=== PATIENT | male | born 1950 | race African-American/Black ===

== ENCOUNTER 2017-01-16 13:59 | Inpatient (IN) | payer MEDICARE, OTHER ==
--- NOTE | ~2017-01-16 | CN ---
Consultation Report [facility] [address] [place]. [address] NAME: JONNA GUZMAN : 48 STATUS : ADM IN PAT#: [id number] AGE: 66 ADM/REG DATE : 01/16/17 MR#: [id number] REPORT SERV DATE: 01/18/17 DICTATED BY: MARK HATHAWAY DATE: 01/17/17 REPORT STATUS : Draft TRANSCRIBED BY: MODL DATE: 01/17/17 GI CONSULT DATE OF CONSULTATION: HISTORY OF PRESENT ILLKNESS: This 66-year-old gentleman has a past history of ulcerative colitis. He was diagnosed in 2010 with 45 cm of disease. At that time, he had anemia and denied much in the way of symptoms. He was treated with steroids off and on. In 12/2015, he had a colonoscopy that showed fairly severe changes from the rectum to the hepatic flexure. He was anemic at that time. He denied symptoms of bleeding or diarrhea. He was initially evaluated because of iron-deficiency anemia, but he really denied bleeding. He was offered treatment with biologic agents, either anti-TNF agents or Entyvio. He refused either treatment. He was not compliant and did not follow up after that. He was admitted with weakness. His hemoglobin was 3.2. He denied any black stools or obvious bleeding. He denied diarrhea. PHYSICAL EXAMINATION: VITAL SIGNS: His blood pressure is 112/63 and pulse is 90. GENERAL: Alert and oriented. Looks stated age. CHEST: Clear. CARDIAC: Normal. ABDOMEN: Soft and nontender. The patient has stool with blood in it that is loose. He denies at that time having bleeding. He also has carcinoma of the prostate which is apparently very aggressive, stage IV. He has been on prednisone for that and I think some sort of chemo agent. IMPRESSION: Patient with history of ulcerative colitis dating back to 2010. He has been evaluated for this multiple times and has had more extensive involvement of his colon. He has always denied any symptoms. He has been offered various treatments including steroid taper and biologic agents which he has refused. I see at this point no reason for a bone marrow as he has been evaluated for this. PLAN: At this point, we can consider re-endoscopy though it is really not going to gear changer. In my view, he needs to decide if he is willing to accept treatment for his inflammatory bowel disease, I suppose it would depend on his prognosis for his prostate cancer. MG/VERONICAL Mark Hathaway M.D. Consultation Report [address] [address] NAME: JONNA GUZMAN : 48 STATUS : ADM IN PAT#: [id number] AGE: 66 ADM/REG DATE : 01/16/17 MR#: [id number] REPORT SERV DATE: 01/18/17 DICTATED BY: MARK HATHAWAY DATE: 01/17/17 REPORT STATUS : Draft TRANSCRIBED BY: GINA DATE: 01/17/17 / [id number] CC: Ana M Franklin M.D.
--- NOTE | ~2017-01-16 | CN ---
Consultation Report [address] [place]. [address] NAME: JONNA BACK : 48 STATUS : ADM IN PAT#: [id number] AGE: 66 ADM/REG DATE : 01/16/17 MR#: [id number] REPORT SERV DATE: 01/17/17 DICTATED BY: MANE RIGGS DATE: 01/17/17 REPORT STATUS : Draft TRANSCRIBED BY: MODL DATE: 01/17/17 CONSULTATION NOTE DATE OF CONSULTATION: REASON FOR CONSULTATION: 1. Urinary retention. 2. Carcinoma of the prostate. 3. Acute kidney injury. HISTORY OF PRESENT ILLNESS: Mr. Back is an established patient of Dr. Cliff Martin who is followed for prostate cancer, presumably stage T4. The patient was asked about his treatment and he stated that he did receive Provenge, but has not had radiation therapy nor surgery. He was admitted with a hemoglobin of 3.2 and hematocrit of 13.4 with no visible bleeding. Creatinine was 3.72 with mild upper tract dilation on a renal ultrasound and marked bladder distention. PHYSICAL EXAMINATION: GASTROINTESTINAL: The bladder is distended to the umbilicus and nontender. Abdomen is otherwise unremarkable. Flanks are negative. CHEST: Clear. GENITALIA: Normal. Uncircumcised. Perineum normal. RECTAL: Deferred. IMPRESSION: 1. Urinary retention. 2. Acute kidney injury, probably secondary to urinary retention. 3. Carcinoma of the prostate (question stage T4). PLAN: Martin catheter was passed with some degree of difficulty in #18 coude Martin with return of greater than 800 mL. (Martin is clamped and then will be completely drained after about 10 minutes). Urine culture is obtained. Dr. Martin will follow on 01/18/2017. MS/MODL Mane Riggs M.D. / [id number] CC: Donald Alvarez M.D. Consultation Report [address] [place]. [address] NAME: JONNA BACK : 48 STATUS : ADM IN PAT#: [id number] AGE: 66 ADM/REG DATE : 01/16/17 MR#: [id number] REPORT SERV DATE: 01/17/17 DICTATED BY: MANE RIGGS DATE: 01/17/17 REPORT STATUS : Draft TRANSCRIBED BY: GINA DATE: 01/17/17 Frances Jean M.D. Cliff Martin M.D.
--- NOTE | ~2017-01-16 | HP ---
History And Physical [place] [id number] [facility] [place]. [address] NAME: JONNA GUZMAN : 48 STATUS : ADM IN [facility]#: [id number] AGE: 66 ADM/REG DATE : 01/16/17 MR#: [id number] REPORT SERV DATE: 01/16/17 DICTATED BY: SCOTT MULTANI DATE: 01/16/17 REPORT STATUS : Draft TRANSCRIBED BY: MODL DATE: 01/16/17 DATE OF ADMISSION: 01/16/2017 CHIEF COMPLAINT: Dyspnea on exertion. HISTORY OF PRESENT ILLNESS: This is a 66-year-old gentleman with no pertinent past medical history, presenting with dyspnea on exertion. The patient reports that he has been suffering from dyspnea on exertion as well as fatigue and generalized weakness over the past month and a half or so. The patient, otherwise, did not have any other focal symptoms such as chest pain, lightheadedness, dizziness, or orthostasis. The patient came to the ER for further evaluation and care. In the ER, the patient was found to be afebrile and hemodynamically stable. The patient was then found to have a significant acute kidney injury with creatinine of 3.69 and then the patient was also shockingly found to have a hemoglobin of 3.2 and hematocrit of 13.4. Hemoccult test was performed in the ER, and the rectal exam itself was quite benign with non thrombosed small hemorrhoid and the fecal occult blood test was only very faintly positive. The patient himself denied any history of black stools or any obvious bleeding. Internal Medicine consultation was requested for admission of patient for further evaluation and care. In reviewing pertinent past medical records, the patient denies use of any ciht-vvy-ajbeftr NSAIDs. The patient reports that he has been on iron replacement therapy in the past and the patient also had a colonoscopy about two to three years ago by Dr. Gustafson, and at that time, he was found to have infection in his intestines, but no cancer. The patient has then since lost to follow up. The patient does not see his PCP on a regular basis and the patient has not really seen Dr. Gustafson since the colonoscopy. The patient eventually discontinued the iron replacement therapy on his own. In terms of bowel movements, they have not really changed, but the patient has had some diarrhea that was nonbloody and non- melanotic. REVIEW OF SYSTEMS: The patient denies any fevers or chills. Also, 14-point review of systems reviewed and negative other than mentioned above. MEDICATIONS: The list is still pending at this time, but the patient mainly takes eye drops and that is about it. ALLERGIES: NKDA. PAST MEDICAL HISTORY: 1. Glaucoma. 2. History of iron replacement therapy. PAST SURGICAL HISTORY: Colonoscopy about two to three years ago by Dr. Gustafson, which apparently showed infections in his intestines. History And Physical [address] [address] NAME: JONNA GUZMAN : 48 STATUS : ADM IN [facility]#: [id number] AGE: 66 ADM/REG DATE : 01/16/17 MR#: [id number] REPORT SERV DATE: 01/16/17 DICTATED BY: SCOTT MULTANI DATE: 01/16/17 REPORT STATUS : Draft TRANSCRIBED BY: GINA DATE: 01/16/17 FAMILY HISTORY: Hypertension. SOCIAL HISTORY: The patient does not smoke, drink alcohol, or use any illicit drugs. The patient lives at home by himself. PHYSICAL EXAMINATION: VITAL SIGNS: Temperature 98.0, blood pressure 112/63, pulse 93, respiratory rate is 16, and saturating 97% on room air. GENERAL: The patient is alert and oriented x3 with no focal neurologic deficits. The patient is awake, does not appear to be in acute distress, and he is cooperative. NECK: No JVD. No lymphadenopathy. Normal thyroid. CHEST: No midline sternotomy scar and no tenderness to palpation. LUNGS: Clear to auscultation bilaterally with normal respiratory effort on room air. CARDIOVASCULAR: The patient is slightly tachycardic, but otherwise, no murmurs, rubs, or gallops, and PMI is nondisplaced. ABDOMEN: Soft and nontender with active bowel sounds and no organomegaly. EXTREMITIES: No edema. Normal distal pulses. No calf tenderness. SKIN: Clean, dry, warm, and intact. LABORATORY DATA: Sodium is 141, potassium 4.6, chloride 110, BUN 49, creatinine 3.69, glucose 103, calcium 8.8, and magnesium 2.7. White blood cell count is 11.4, hemoglobin is 3.2, and platelets 591. INR is 1.3. MCV was 59.8. Troponin is less than 0.02. BNP is 61.6. Chest x-ray is personally interpreted and is nonacute. ASSESSMENT: This is a 66-year-old gentleman with history of iron deficiency anemia, presenting with a severe symptomatic microcytic anemia. 1. Severe symptomatic microcytic anemia with hemoglobin of 3.2 and MCV of 59.8. The patient does not report any history of obvious blood loss. 2. Acute kidney injury and renal insufficiency, creatinine of 3.69 whereas baseline is 0.85. 3. Metabolic acidosis secondary to above. 4. Thrombocytosis, could be reactive. 5. Slight leukocytosis. PLAN: My plan is to admit the patient under telemetry monitoring. The patient will be given two packs of packed red blood cells to begin with. The patient will also be given aggressive IV fluid resuscitation. I will go ahead and monitor his H and Hs. The patient's electrolytes and renal function will also be closely monitored as the patient is given IV fluid hydration. I will check LFTs, TSH, B12, folate, and iron panel. I will also go ahead and get GI consultation requested. I will have a low threshold to get Hematology as well as Nephrology involved depending on how the patient responds to initial treatment. For the severe acute kidney injury, I will go ahead and also order renal ultrasound and urinalysis. Standard DVT prophylaxis. The patient is full code at this time. History And Physical [address] [address] NAME: JONNA GUZMAN : 48 STATUS : ADM IN [facility]#: [id number] AGE: 66 ADM/REG DATE : 01/16/17 MR#: [id number] REPORT SERV DATE: 01/16/17 DICTATED BY: SCOTT MULTANI DATE: 01/16/17 REPORT STATUS : Draft TRANSCRIBED BY: MODL DATE: 01/16/17 [facility]/GINA Scott Multani MD / [id number] CC: Ana M Franklin M.D. Michael Goodman, M.D.
--- NOTE | ~2017-01-16 | DS ---
Discharge Summary [facility] [address] [place]. [address] NAME: JONNA GUZMAN : 48 STATUS : DIS IN PAT#: [id number] AGE: 66 ADM/REG DATE : 01/16/17 MR#: [id number] REPORT SERV DATE: 01/23/17 DICTATED BY: DONALD CORRALES DATE: 01/22/17 REPORT STATUS : Draft TRANSCRIBED BY: GINA DATE: 01/22/17 ADMISSION DATE: 01/16/2017 DISCHARGE DATE: 01/22/2017 ADDENDUM: This will be an addendum to job #[id number]. This patient had an IV in the antecubital fossa on the right. He developed a superficial DVT with extension into the brachiocephalic vein. There is some warmth and heat around that area. DVT was confirmed using a venous Doppler. We discussed with the patient the risks, benefits, and alternatives of anticoagulation at this time. We do not prefer using anticoagulation because this patient had significant blood loss with a hemoglobin down to 3.5 and after five units of transfusion, his hemoglobin has remained in 8.6. He has active ulcerative colitis that has caused him this slow bleeding. This patient was asked to use a heating pad, keep his arm straight and elevated as much as possible. He voices understanding why we are not using anticoagulation at this time. This was also communicated with the nursing staff and the nurse meat processing center manager on . ELIESER/GINA Donald Corrales M.D. / [id number]
--- NOTE | ~2017-01-16 | CN ---
Consultation Report [address] [place]. [address] NAME: JONNA BACK : 48 STATUS : ADM IN PAT#: [id number] AGE: 66 ADM/REG DATE : 01/16/17 MR#: [id number] REPORT SERV DATE: 01/18/17 DICTATED BY: MANE RIGGS DATE: 01/17/17 REPORT STATUS : Draft TRANSCRIBED BY: GINA DATE: 01/17/17 CONSULTATION DATE OF CONSULTATION: 01/17/2017 HISTORY OF PRESENT ILLNESS: Mr. Back is a long-term patient of Dr. Cliff Martin with history of castrate resistant and metastatic prostate cancer. In the past, he has been on Zytiga with prednisone and then also has been treated with Provenge. He was admitted to Dr. Alvarez's service in urinary retention with his bladder distended up to his umbilicus and bilateral hydronephrosis on imaging, and a creatinine in excess of 3. He also was admitted with a hemoglobin between 3 and 4, and a hematocrit of around 13. He is transfused. There was no site of active bleeding. PHYSICAL EXAMINATION: GENERAL: This is a 66-year-old black gentleman, alert and oriented and reasonably uncomfortable because of his distended bladder. CHEST: Clear. CARDIOVASCULAR: Regular rate and rhythm. ABDOMEN: There is a palpable suprapubic mass, which percusses to the umbilicus consistent with a distended bladder. GENITALIA: Normal. Uncircumcised penis. Testes, perineum unremarkable. EXTREMITIES: Unremarkable. RECTAL: Not done. IMPRESSION: 1. Metastatic prostate cancer. 2. Anemia unknown etiology, possible ? related to metastatic prostate cancer/? myelodysplasia. PLAN: Placed a #18 coude Martin catheter with some difficulty. Received approximately 900 mL residual urine, specimen was obtained for culture. Dr. Martin will follow on 01/18/2013. Thank you very much for asking us to see Mr. Back. MS/VERONICAL Mane Riggs M.D. / [id number] CC: Consultation Report [address] [place]. [address] NAME: JONNA BACK : 48 STATUS : ADM IN PAT#: [id number] AGE: 66 ADM/REG DATE : 01/16/17 MR#: [id number] REPORT SERV DATE: 01/18/17 DICTATED BY: MANE RIGGS DATE: 01/17/17 REPORT STATUS : Draft TRANSCRIBED BY: MODL DATE: 01/17/17 Ana M Franklin M.D. Patrick Foley, M.D.
--- NOTE | ~2017-01-16 | EGD ---
EGD REPORT [facility] [address] [place] [address] NAME: JONNA BACK : 48 STATUS : ADM IN PAT#: [id number] AGE: 66 ADM/REG DATE : 01/16/17 MR#: [id number] REPORT SERV DATE: 01/19/17 DICTATED BY: MARK HATHAWAY DATE: 01/19/17 REPORT STATUS : Draft TRANSCRIBED BY: [facility] DATE: 01/19/17 Endoscopy Center Patient Name: Jonna Back Date of : 1950 Attending MD: MARK HATHAWAY MD Procedure Date No Time: 01/19/2017 Procedure: Colonoscopy Indications: Follow-up of chronic ulcerative pancolitis Referring MD: MAYI LEACH MD Medicines: Propofol per Anesthesia Complications: No immediate complications. Procedure: Pre-Anesthesia Assessment: - ASA Grade Assessment: III - A patient with severe systemic disease. After I obtained informed consent, the scope was passed under direct vision. Throughout the procedure, the patient's blood pressure, pulse, and oxygen saturations were monitored continuously. The PCF [id number] was introduced through the anus and advanced to the cecum, identified by appendiceal orifice and ileocecal valve. The entire colon was examined. The quality of the bowel preparation was adequate. Findings: Inflammation characterized by adherent blood, congestion (edema), erythema, friability, mucus, pseudopolyps and shallow ulcerations was found in a continuous and circumferential pattern from the anus to the cecum. No sites were spared. This was severe in severity, and when compared to previous examinations, the findings are worsened. Biopsies were taken with a cold forceps for histology. Impression: - Inflammation was found from the anus to the cecum secondary to pancolitis ulcerative colitis. The findings are worsened compared to previous examinations. Biopsied. Recommendation: - Return patient to [facility] for [facility] care. Procedure Code(s): --- Professional --- 93841, Colonoscopy, flexible, proximal to splenic flexure; with biopsy, single or multiple Diagnosis Code(s): --- Professional --- K51.00, Ulcerative (chronic) pancolitis without complications EGD REPORT [facility] [address] [place] [address] [place]. [address] NAME: JONNA BACK : 46 STATUS : ADM IN [facility]#: [id number] AGE: 66 ADM/REG DATE : 01/16/17 MR#: [id number] REPORT SERV DATE: 01/19/17 DICTATED BY: MARK HATHAWAY. DATE: 01/19/17 REPORT STATUS : Draft TRANSCRIBED BY: [employer] DATE: 01/19/17 CPT copyright 2013 [employer]. All rights reserved. The codes documented in this report are preliminary and upon director card review may be revised to meet current compliance requirements. Mark Hathaway MD MARK HATHAWAY MD 01/19/2017 12:59 PM This report has been signed electronically. Number of Addenda: 0 Note Initiated On: 01/19/2017 12:31 PM Scope Withdrawal Time 0 hours 0 minutes 0 seconds [address] [facility] [place] [address]
--- NOTE | ~2017-01-16 | DS ---
Discharge Summary [place] [address] [facility] [place]. [address] NAME: JONNA GUZMAN : 46 STATUS : DIS IN PAT#: [id number] AGE: 66 ADM/REG DATE : 01/16/17 MR#: [id number] REPORT SERV DATE: 01/23/17 DICTATED BY: DONALD ALVAREZ DATE: 01/22/17 REPORT STATUS : Draft TRANSCRIBED BY: MODL DATE: 01/22/17 ADMISSION DATE: 01/16/2017 DISCHARGE DATE: 01/22/2017 DISCHARGE DIAGNOSES: 1. Acute exacerbation of ulcerative colitis. 2. Severe iron-deficiency anemia with chronic bleeding. 3. Acute kidney injury, now resolved. 4. Thrombocytosis, now improved. 5. Metabolic acidosis, now resolved. 6. Urinary retention due to enlarged prostate, status post coude Martin catheter placed by Dr. Monroe. 7. Recurrent prostate cancer. Lupron, Zytiga, and prednisone therapy. 8. Iron deficiency anemia due to chronic blood loss. CONSULTANTS DURING THIS HOSPITALIZATION: 1. Dr. Mark Gustafson of Gastroenterology. 2. Dr. Cliff Martin and Dr. Nowak of Urology. PROCEDURES: Invasive procedures done during this hospitalization: Colonoscopy showing hybzxrin-rc-lgkyac ulcerative colitis in the entire portion of the colon with some hemorrhagic changes. Placement of a Martin catheter. BRIEF HISTORY OF PRESENT ILLNESS: The patient is a 66-year-old gentleman who presented with dyspnea, evidence of renal failure, and severe low H and H. So, he was admitted. For detailed history and physical exam, please see note dictated by Dr. Scott Torres on 01/16/2017. HOSPITAL COURSE: After being admitted to the hospital, this patient underwent a total of five units of PRBC transfusions sequentially until his H and H came up to about 8.5 from 3.5. This patient felt well. His kidney function resolved. He was given IV fluids. He had significant urinary retention, so a Martin was placed; however, because of his enlarged prostate, we needed Urology, so Dr. Nowak saw the patient in consultation and placed a Coude. It is recommended that he will follow up with Dr. Cliff Martin in the outpatient setting for further treatment of his enlarged prostate and recurrent prostate cancer, and Urology has signed off his care. I discussed his care with Dr. Gustafson. This patient has a severe problem with noncompliance and followup care. I do not see that he quite understands the gravity of his situation. I have impressed upon the patient that if he does not follow up with Dr. Gustafson, he could have serious adverse complications of his disease. At this time, the plan is to continue his prednisone for two weeks, and then Dr. Gustafson will see him in the office to further decide on biologic therapy if the patient would be compliant. As far as his H and H, he received also four doses of IV iron. P.o. iron is not entertained because of its effect on ulcerative colitis. He remained stable, he is ambulatory, and he is being discharged in stable condition. DISCHARGE DISPOSITION: Home. [address]charge [address] [place]. [address] NAME: JONNA GUZMAN : 48 STATUS : DIS IN PAT#: [id number] AGE: 66 ADM/REG DATE : 01/16/17 MR#: [id number] REPORT SERV DATE: 01/23/17 DICTATED BY: DONALD ALVAREZ DATE: 01/22/17 REPORT STATUS : Draft TRANSCRIBED BY: MODJeana DATE: 01/22/17 DISCHARGE ACTIVITY: As tolerated. DISCHARGE DIET: GI soft diet. DISCHARGE MEDICATIONS: Multivitamins 1 tablet daily, Protonix 40 mg once daily, sodium bicarb 650 mg once daily, Flomax 0.4 mg once at bedtime, prednisone 40 mg once daily, Combigan ophthalmic drops as directed, and Xalatan ophthalmic drops as directed. DISCHARGE FOLLOWUP: With Dr. Mark Gustafson in two weeks, with Dr. Cliff Martin in one week. More than 35 minutes were spent planning this patient's discharge, reconciling medications, writing prescriptions, discussing hospital care, and follow up with the patient and documenting this discharge. ELIESER/GINA Donald Alvarez M.D. / [id number] CC: Ana M Tavares M.D.
[~2017-01-16 13:59] MED LIST: [UNRECOGNIZED DRUG - REMARK]
[2017-01-16 14:29] LABS: INTERNATIONAL NORMAL RATI 1.3 UNITS (-); PARTIAL THROMBO TIME 27.5 SEC (22.5-37.2); PROTIME (NOT ORD) 15.7 SEC (12.0-14.5)
[2017-01-16 14:35] LABS: BASOPHILS 0.4 %; BASOPHILS ABSOLUTE 0.05 10/3/uL (0.0-0.16); ER CBC TAT 0 Hrs 20 Mins; MEAN PLATELET VOLUME 8.6 fL (9.2-13.0); NUCLEATED RED BLOOD CELLS 12.2 /100WBC (0-0); WHITE BLOOD CELLS 11.4 10/3/uL (4.5-10.5)
[2017-01-16 14:36] LABS: HEMATOCRIT 13.4 % (40.0-51.0); HEMOGLOBIN 3.2 g/dL (13.6-17.8); MEAN CORPUS HGB CONC 23.9 g/dL (32.0-36.0); MEAN CORPUSCULAR HEMOGLOB 14.3 pg (26.0-34.0); MEAN CORPUSCULAR VOLUME 59.8 fL (80-100); PLATELET COUNT 591 10/3/uL (150-400); RBC DISTRIBUTION WIDTH 22.6 % (12.0-16.0); RED CELL COUNT 2.24 10/6/uL (4.7-6.1)
[2017-01-16 14:37] LABS: BUN (BLOOD UREA NITROGEN) 49 MG/DL (6-23); CALCIUM, SERUM 8.8 MG/DL (8.5-10.4); CHEST PAIN PROFILE TAT 0 Hrs 22 Mins; CHLORIDE, SERUM 110 MMOL/L (96-112); CO2 (CARBON DIOXIDE) 18 MMOL/L (24-34); CREATININE 3.69 MG/DL (0.70-1.30); GFR AFRICAN AMERICAN 18 ML/MIN (>=60); GFR NON AFRICAN AMERICAN 16 ML/MIN (>=60); GLUCOSE, SERUM 103 MG/DL (60-99); POTASSIUM, SERUM 4.6 MMOL/L (3.5-5.3); SODIUM, SERUM 141 MMOL/L (135-148); TROPONIN I <0.02 NG/ML (<0.05)
[2017-01-16 16:14] LABS: SEGMENTED NEUTROPHIL (0) 62 %; TOTAL NUCLEATED CELLS 100
[2017-01-16 16:15] LABS: BAND NEUTROPHILS 9 %; EOSINOPHILS 1 %; EOSINOPHILS ABSOLUTE (CALC) 0.11 10/3/uL (0.0-0.53); LYMPHOCYTES 22 %; LYMPHOCYTES ABSOLUTE (CALC) 2.51 10/3/uL (0.67-4.30); MONOCYTES 6 %; MONOCYTES ABSOLUTE (CALC) 0.68 10/3/uL (0.21-1.20); NEUTROPHILS ABSOLUTE (CALC) 8.09 10/3/uL (2.02-8.40)
[2017-01-16 16:16] LABS: HYPOCHROMIA 3+ (>30/OIF) (0-2/OIF); MICROCYTES 4+ (>50/OIF) (0-5/OIF); PLATELET ESTIMATE SLT INC (ADEQUATE)
[2017-01-16 16:17] LABS: POLYCHROMASIA 1+ (2-5/OIF) (0-1/OIF); TARGET CELLS FEW (3-10/OIF) (0-1/OIF); TEARDROP SHAPED RBCS FEW (3-10/OIF)
[2017-01-16 16:20] LABS: ELLIPTOCYTES 1+ (3-10/OIF) (0-2/OIF)
[2017-01-16 16:22] LABS: ER DIFF TAT 1 Hrs 59 Mins
[2017-01-16] MEDS ORDERED: XALAT OPH (16:41)
[2017-01-16] MEDS ORDERED: COMBIGAN0.2 MG/0.5 OPH (16:41)
[2017-01-16 18:55] LABS: RETICULOCYTE COUNT 1.8 % (0.5-2.5); RETICULOCYTE COUNT ABSOLUTE 36.8 10/3/uL (20.2-119.8)
[2017-01-16 19:39] LABS: A/G RATIO 0.6 (0.7-1.9); ALBUMIN 2.8 G/DL (3.5-5.0); ALKALINE PHOSPHATASE 68 U/L (45-117); BUN (BLOOD UREA NITROGEN) 51 MG/DL (6-23); CALCIUM, SERUM 8.9 MG/DL (8.5-10.4); CHLORIDE, SERUM 109 MMOL/L (96-112); CO2 (CARBON DIOXIDE) 18 MMOL/L (24-34); CREATININE 3.72 MG/DL (0.70-1.30); FERRITIN 4 NG/ML (26-388); FOLATE 14.7 NG/ML (>5.2); GFR AFRICAN AMERICAN 18 ML/MIN (>=60); GFR NON AFRICAN AMERICAN 16 ML/MIN (>=60); GLOBULIN 4.8 G/DL (2.5-4.1); GLUCOSE, SERUM 100 MG/DL (60-99); IRON BINDING CAPACITY 357 MCG/DL (250-450); IRON, SERUM 9 MCG/DL (35-150); POTASSIUM, SERUM 4.6 MMOL/L (3.5-5.3); SGOT(AST) 8 U/L (5-40); SGPT(ALT) 10 U/L (5-65); SODIUM, SERUM 141 MMOL/L (135-148); TOTAL BILIRUBIN 0.4 MG/DL (0-1.2); TOTAL PROTEIN 7.6 G/DL (6.0-8.5)
[2017-01-17 02:07] LABS: HEMATOCRIT 16.5 % (40.0-51.0); HEMOGLOBIN 4.7 g/dL (13.6-17.8)
[2017-01-17 11:55] LABS: ALBUMIN 2.5 G/DL (3.5-5.0); CALCIUM, SERUM 8.3 MG/DL (8.5-10.4); CHLORIDE, SERUM 116 MMOL/L (96-112); CO2 (CARBON DIOXIDE) 16 MMOL/L (24-34); GFR AFRICAN AMERICAN 28 ML/MIN (>=60); GFR NON AFRICAN AMERICAN 24 ML/MIN (>=60); GLUCOSE, SERUM 91 MG/DL (60-99); PHOSPHORUS, SERUM 4.2 MG/DL (2.5-4.5); SODIUM, SERUM 144 MMOL/L (135-148)
[2017-01-17 11:56] LABS: MEAN PLATELET VOLUME 8.4 fL (9.2-13.0); NUCLEATED RED BLOOD CELLS 4.9 /100WBC (0-0)
[2017-01-17 11:57] LABS: HEMOGLOBIN 6.4 g/dL (13.6-17.8); MEAN CORPUS HGB CONC 29.1 g/dL (32.0-36.0); MEAN CORPUSCULAR HEMOGLOB 21.1 pg (26.0-34.0); MEAN CORPUSCULAR VOLUME 72.4 fL (80-100); PLATELET COUNT 402 10/3/uL (150-400); RBC DISTRIBUTION WIDTH 29.1 % (12.0-16.0); RED CELL COUNT 3.04 10/6/uL (4.7-6.1); WHITE BLOOD CELLS 6.8 10/3/uL (4.5-10.5)
[2017-01-17 11:59] LABS: BUN (BLOOD UREA NITROGEN) 45 MG/DL (6-23); CREATININE 2.62 MG/DL (0.70-1.30)
[2017-01-17 12:00] LABS: MANUAL DIFF YES %
[2017-01-17 12:25] LABS: ANISOCYTOSIS 4+ (>50/OIF) (0-5/OIF); BAND NEUTROPHILS 4 %; EOSINOPHILS 6 %; EOSINOPHILS ABSOLUTE (CALC) 0.41 10/3/uL (0.0-0.53); LYMPHOCYTES 23 %; LYMPHOCYTES ABSOLUTE (CALC) 1.56 10/3/uL (0.67-4.30); MONOCYTES 8 %; MONOCYTES ABSOLUTE (CALC) 0.54 10/3/uL (0.21-1.20); NEUTROPHILS ABSOLUTE (CALC) 4.28 10/3/uL (2.02-8.40); PLATELET ESTIMATE SLT INC (ADEQUATE); RETICULOCYTE COUNT 1.8 % (0.5-2.9); RETICULOCYTE COUNT ABSOLUTE 56.1 10/3/uL (20.2-119.8); SEGMENTED NEUTROPHIL (0) 59 %; TOTAL NUCLEATED CELLS 100
[2017-01-17 12:26] LABS: HYPOCHROMIA 3+ (>30/OIF) (0-2/OIF)
[2017-01-17 12:28] LABS: BURR CELLS 1+ (3-10/OIF) (0-2/OIF)
[2017-01-17 12:53] LABS: ASCORBIC ACID (UR NOT ORDER) NEG (NEG); BILIRUBIN, URINE NEGATIVE (NEG); KETONE, URINE NEGATIVE (NEG); LEUKOCYTE ESTERASE(NOT OR NEG (NEG); WBC (NOT ORDERED) (RFLEX) 9 (0-5)
[2017-01-17 22:41] LABS: HEMOGLOBIN 7.7 g/dL (13.6-17.8)
[2017-01-18 01:44] LABS: HEMATOCRIT 26.6 % (40.0-51.0); HEMOGLOBIN 8.3 g/dL (13.6-17.8)
[2017-01-18 06:32] LABS: ALBUMIN 2.3 G/DL (3.5-5.0); CALCIUM, SERUM 8.4 MG/DL (8.5-10.4); CHLORIDE, SERUM 114 MMOL/L (96-112); CO2 (CARBON DIOXIDE) 17 MMOL/L (24-34); GLUCOSE, SERUM 87 MG/DL (60-99); POTASSIUM, SERUM 3.8 MMOL/L (3.5-5.3); SODIUM, SERUM 145 MMOL/L (135-148)
[2017-01-18 06:33] LABS: BUN (BLOOD UREA NITROGEN) 32 MG/DL (6-23); CREATININE 1.86 MG/DL (0.70-1.30); GFR AFRICAN AMERICAN 42 ML/MIN (>=60); GFR NON AFRICAN AMERICAN 36 ML/MIN (>=60); PHOSPHORUS, SERUM 2.9 MG/DL (2.5-4.5)
[2017-01-18 06:54] LABS: HEMATOCRIT 27.8 % (40.0-51.0); HEMOGLOBIN 8.7 g/dL (13.6-17.8); NUCLEATED RED BLOOD CELLS 7.4 /100WBC (0-0); PLATELET COUNT 298 10/3/uL (150-400); RBC DISTRIBUTION WIDTH 26.6 % (12.0-16.0)
[2017-01-18 06:56] LABS: MANUAL DIFF YES %; MEAN CORPUS HGB CONC 31.3 g/dL (32.0-36.0); MEAN CORPUSCULAR HEMOGLOB 23.5 pg (26.0-34.0); MEAN CORPUSCULAR VOLUME 74.9 fL (80-100); RED CELL COUNT 3.71 10/6/uL (4.7-6.1)
[2017-01-18 07:47] LABS: BAND NEUTROPHILS 8 %; EOSINOPHILS 5 %; IMMATURE GRANS ABSOLUTE (CALC) 0.08 10/3/uL (0.0-0.11); LYMPHOCYTES 27 %; LYMPHOCYTES ABSOLUTE (CALC) 2.16 10/3/uL (0.67-4.30); METAMYELOCYTES 1 %; MONOCYTES 9 %; MONOCYTES ABSOLUTE (CALC) 0.72 10/3/uL (0.21-1.20); NEUTROPHILS ABSOLUTE (CALC) 4.64 10/3/uL (2.02-8.40); PLATELET ESTIMATE ADQ (ADEQUATE); SEGMENTED NEUTROPHIL (0) 50 %; TOTAL NUCLEATED CELLS 100
[2017-01-18 07:48] LABS: HYPOCHROMIA 1+ (3-10/OIF) (0-2/OIF); MACROCYTES 1+ (5-10/OIF) (0-5/OIF)
[2017-01-18 16:58] LABS: HEMATOCRIT 28.4 % (40.0-51.0); HEMOGLOBIN 8.7 g/dL (13.6-17.8)
[2017-01-18 23:43] LABS: HEMOGLOBIN 9.7 g/dL (13.6-17.8)
[2017-01-18 23:44] LABS: HEMATOCRIT 31.5 % (40.0-51.0)
[2017-01-19 05:52] LABS: ALBUMIN 2.3 G/DL (3.5-5.0); CALCIUM, SERUM 8.3 MG/DL (8.5-10.4); CHLORIDE, SERUM 114 MMOL/L (96-112); CO2 (CARBON DIOXIDE) 19 MMOL/L (24-34); CREATININE 1.47 MG/DL (0.70-1.30); GFR AFRICAN AMERICAN 56 ML/MIN (>=60); GFR NON AFRICAN AMERICAN 48 ML/MIN (>=60); GLUCOSE, SERUM 91 MG/DL (60-99); PHOSPHORUS, SERUM 2.4 MG/DL (2.5-4.5); POTASSIUM, SERUM 3.7 MMOL/L (3.5-5.3); SODIUM, SERUM 144 MMOL/L (135-148)
[2017-01-19 05:53] LABS: BUN (BLOOD UREA NITROGEN) 23 MG/DL (6-23)
[2017-01-19 06:34] LABS: HEMATOCRIT 28.2 % (40.0-51.0); HEMOGLOBIN 8.5 g/dL (13.6-17.8); MANUAL DIFF YES %; MEAN CORPUS HGB CONC 30.1 g/dL (32.0-36.0); MEAN CORPUSCULAR VOLUME 76.4 fL (80-100); MEAN PLATELET VOLUME 8.9 fL (9.2-13.0); NUCLEATED RED BLOOD CELLS 8.2 /100WBC (0-0); PLATELET COUNT 230 10/3/uL (150-400); RBC DISTRIBUTION WIDTH 27.7 % (12.0-16.0); RED CELL COUNT 3.69 10/6/uL (4.7-6.1); WHITE BLOOD CELLS 7.7 10/3/uL (4.5-10.5)
[2017-01-19 06:59] LABS: BAND NEUTROPHILS 13 %; BASOPHILS 2 %; BASOPHILS ABSOLUTE (CALC) 0.15 10/3/uL (0.0-0.16); EOSINOPHILS 2 %; EOSINOPHILS ABSOLUTE (CALC) 0.15 10/3/uL (0.0-0.53); IMMATURE GRANS ABSOLUTE (CALC) 0.08 10/3/uL (0.0-0.11); LYMPHOCYTES 14 %; LYMPHOCYTES ABSOLUTE (CALC) 1.08 10/3/uL (0.67-4.30); METAMYELOCYTES 1 %; MONOCYTES 6 %; MONOCYTES ABSOLUTE (CALC) 0.46 10/3/uL (0.21-1.20); NEUTROPHILS ABSOLUTE (CALC) 5.78 10/3/uL (2.02-8.40); SEGMENTED NEUTROPHIL (0) 62 %; TOTAL NUCLEATED CELLS 100
[2017-01-19 07:00] LABS: HYPOCHROMIA 1+ (3-10/OIF) (0-2/OIF); PLATELET ESTIMATE ADQ (ADEQUATE); POIKILOCYTOSIS 1+ (5-10/OIF) (0-5/OIF); POLYCHROMASIA 1+ (2-5/OIF) (0-1/OIF)
[2017-01-19 07:01] LABS: HELMET CELLS OCC (0-2/OIF); SCHISTOCYTES OCC (0-2/OIF); TEARDROP SHAPED RBCS OCC (0-2/OIF)
[2017-01-19 10:01] LABS: HEMATOCRIT 28.8 % (40.0-51.0); HEMOGLOBIN 8.7 g/dL (13.6-17.8)
[2017-01-19 16:42] LABS: HEMATOCRIT 31.9 % (40.0-51.0); HEMOGLOBIN 9.6 g/dL (13.6-17.8)
[2017-01-20 06:53] LABS: A/G RATIO 0.5 (0.7-1.9); ALKALINE PHOSPHATASE 54 U/L (45-117); BUN (BLOOD UREA NITROGEN) 24 MG/DL (6-23); CALCIUM, SERUM 8.1 MG/DL (8.5-10.4); CHLORIDE, SERUM 112 MMOL/L (96-112); CO2 (CARBON DIOXIDE) 16 MMOL/L (24-34); CREATININE 1.16 MG/DL (0.70-1.30); GFR AFRICAN AMERICAN 75 ML/MIN (>=60); GFR NON AFRICAN AMERICAN 64 ML/MIN (>=60); GLOBULIN 3.8 G/DL (2.5-4.1); GLUCOSE, SERUM 108 MG/DL (60-99); SGOT(AST) 9 U/L (5-40); SGPT(ALT) 9 U/L (5-65); SODIUM, SERUM 142 MMOL/L (135-148); TOTAL BILIRUBIN 0.7 MG/DL (0-1.2); TOTAL PROTEIN 5.8 G/DL (6.0-8.5)
[2017-01-20 07:54] LABS: BASOPHILS 0.4 %; BASOPHILS ABSOLUTE 0.03 10/3/uL (0.0-0.16); EOSINOPHILS 0.5 %; EOSINOPHILS ABSOLUTE 0.04 10/3/uL (0.0-0.53); IMMATURE GRANULOCYTES 0.9 %; IMMATURE GRANULOCYTES ABSOLUTE 0.07 10/3/uL (0.0-0.11); LYMPHOCYTES 20.8 %; LYMPHOCYTES ABSOLUTE 1.58 10/3/uL (0.67-4.30); MEAN CORPUS HGB CONC 29.4 g/dL (32.0-36.0); MEAN CORPUSCULAR HEMOGLOB 23.2 pg (26.0-34.0); MONOCYTES 10.1 %; MONOCYTES ABSOLUTE 0.77 10/3/uL (0.21-1.20); NEUTROPHILS 67.3 %; NEUTROPHILS ABSOLUTE 5.12 10/3/uL (2.02-8.40); NUCLEATED RED BLOOD CELLS 3.1 /100WBC (0-0); PLATELET COUNT 203 10/3/uL (150-400); RBC DISTRIBUTION WIDTH 29.6 % (12.0-16.0); RED CELL COUNT 3.45 10/6/uL (4.7-6.1); WHITE BLOOD CELLS 7.6 10/3/uL (4.5-10.5)
[2017-01-20 07:56] LABS: HEMATOCRIT 27.2 % (40.0-51.0); MANUAL DIFF NO %; MEAN CORPUSCULAR VOLUME 78.8 fL (80-100)
[2017-01-20 08:09] LABS: MICROCYTES 1+ (5-10/OIF) (0-5/OIF); PLATELET ESTIMATE ADQ (ADEQUATE)
[2017-01-20 08:10] LABS: HYPOCHROMIA 1+ (3-10/OIF) (0-2/OIF); MACROCYTES 1+ (5-10/OIF) (0-5/OIF); POIKILOCYTOSIS 1+ (5-10/OIF) (0-5/OIF); POLYCHROMASIA 1+ (2-5/OIF) (0-1/OIF); SCHISTOCYTES FEW (3-10/OIF)
[2017-01-20 22:20] LABS: HEMATOCRIT 28.9 % (40.0-51.0); HEMOGLOBIN 8.8 g/dL (13.6-17.8)
[2017-01-21 06:42] LABS: BASOPHILS 0.1 %; BASOPHILS ABSOLUTE 0.01 10/3/uL (0.0-0.16); EOSINOPHILS 1.5 %; HEMATOCRIT 27.7 % (40.0-51.0); HEMOGLOBIN 8.2 g/dL (13.6-17.8); IMMATURE GRANULOCYTES ABSOLUTE 0.07 10/3/uL (0.0-0.11); LYMPHOCYTES 28.7 %; LYMPHOCYTES ABSOLUTE 1.92 10/3/uL (0.67-4.30); MEAN CORPUS HGB CONC 29.6 g/dL (32.0-36.0); MEAN CORPUSCULAR HEMOGLOB 23.5 pg (26.0-34.0); MEAN CORPUSCULAR VOLUME 79.4 fL (80-100); MEAN PLATELET VOLUME 9.4 fL (9.2-13.0); MONOCYTES 10.3 %; MONOCYTES ABSOLUTE 0.69 10/3/uL (0.21-1.20); NEUTROPHILS 58.4 %; NEUTROPHILS ABSOLUTE 3.91 10/3/uL (2.02-8.40); NUCLEATED RED BLOOD CELLS 2.2 /100WBC (0-0); PLATELET COUNT 217 10/3/uL (150-400); RBC DISTRIBUTION WIDTH 29.9 % (12.0-16.0); RED CELL COUNT 3.49 10/6/uL (4.7-6.1); WHITE BLOOD CELLS 6.7 10/3/uL (4.5-10.5)
[2017-01-21 06:43] LABS: MANUAL DIFF NO %
[2017-01-21 07:04] LABS: BUN (BLOOD UREA NITROGEN) 21 MG/DL (6-23); CALCIUM, SERUM 8.3 MG/DL (8.5-10.4); CHLORIDE, SERUM 112 MMOL/L (96-112); CO2 (CARBON DIOXIDE) 16 MMOL/L (24-34); CREATININE 1.15 MG/DL (0.70-1.30); GFR AFRICAN AMERICAN 75 ML/MIN (>=60); GFR NON AFRICAN AMERICAN 65 ML/MIN (>=60); GLUCOSE, SERUM 89 MG/DL (60-99); PHOSPHORUS, SERUM 1.7 MG/DL (2.5-4.5); POTASSIUM, SERUM 3.9 MMOL/L (3.5-5.3); SODIUM, SERUM 140 MMOL/L (135-148)
[2017-01-21 07:40] LABS: HYPOCHROMIA 1+ (3-10/OIF) (0-2/OIF); SCHISTOCYTES FEW (3-10/OIF)
[2017-01-21 07:41] LABS: MICROCYTES 1+ (5-10/OIF) (0-5/OIF); PLATELET ESTIMATE ADQ (ADEQUATE)
[2017-01-21 11:14] LABS: HEMOGLOBIN 8.9 g/dL (13.6-17.8)
[2017-01-21 17:40] LABS: HEMATOCRIT 29.8 % (40.0-51.0)
[2017-01-21 23:46] LABS: HEMATOCRIT 27.8 % (40.0-51.0); HEMOGLOBIN 8.5 g/dL (13.6-17.8)
[2017-01-22 06:03] LABS: BUN (BLOOD UREA NITROGEN) 18 MG/DL (6-23); CALCIUM, SERUM 8.6 MG/DL (8.5-10.4); CHLORIDE, SERUM 114 MMOL/L (96-112); CO2 (CARBON DIOXIDE) 17 MMOL/L (24-34); CREATININE 0.97 MG/DL (0.70-1.30); GFR AFRICAN AMERICAN 93 ML/MIN (>=60); GFR NON AFRICAN AMERICAN 80 ML/MIN (>=60); GLUCOSE, SERUM 86 MG/DL (60-99); PHOSPHORUS, SERUM 1.8 MG/DL (2.5-4.5); POTASSIUM, SERUM 4.1 MMOL/L (3.5-5.3); SODIUM, SERUM 142 MMOL/L (135-148)
[2017-01-22 06:33] LABS: BASOPHILS 0.1 %; BASOPHILS ABSOLUTE 0.01 10/3/uL (0.0-0.16); EOSINOPHILS 1.8 %; EOSINOPHILS ABSOLUTE 0.12 10/3/uL (0.0-0.53); HEMATOCRIT 28.3 % (40.0-51.0); HEMOGLOBIN 8.3 g/dL (13.6-17.8); IMMATURE GRANULOCYTES 0.7 %; IMMATURE GRANULOCYTES ABSOLUTE 0.05 10/3/uL (0.0-0.11); LYMPHOCYTES 26.1 %; LYMPHOCYTES ABSOLUTE 1.77 10/3/uL (0.67-4.30); MEAN CORPUS HGB CONC 29.3 g/dL (32.0-36.0); MEAN CORPUSCULAR HEMOGLOB 23.9 pg (26.0-34.0); MEAN CORPUSCULAR VOLUME 81.3 fL (80-100); MONOCYTES 9.3 %; MONOCYTES ABSOLUTE 0.63 10/3/uL (0.21-1.20); NEUTROPHILS ABSOLUTE 4.21 10/3/uL (2.02-8.40); NUCLEATED RED BLOOD CELLS 0.6 /100WBC (0-0); PLATELET COUNT 210 10/3/uL (150-400); RBC DISTRIBUTION WIDTH 30.8 % (12.0-16.0); RED CELL COUNT 3.48 10/6/uL (4.7-6.1); WHITE BLOOD CELLS 6.8 10/3/uL (4.5-10.5)
[2017-01-22 06:34] LABS: MANUAL DIFF NO %
[2017-01-22 07:14] LABS: ANISOCYTOSIS 4+ (>50/OIF) (0-5/OIF); PLATELET ESTIMATE ADQ (ADEQUATE); RBC MORPHOLOGY ABN (NORMAL)
[2017-01-22 07:15] LABS: OVALOCYTES 1+ (3-10/OIF) (0-2/OIF); SCHISTOCYTES FEW (3-10/OIF); TEARDROP SHAPED RBCS FEW (3-10/OIF)
[2017-01-22 11:27] LABS: HEMATOCRIT 30.4 % (40.0-51.0); HEMOGLOBIN 9.2 g/dL (13.6-17.8)
[2017-01-22] MEDS ORDERED: PROTONIX PO (12:16)
[2017-01-22] MEDS ORDERED: SODBICAR10 PO (12:17)
[2017-01-22] MEDS ORDERED: P10 PO (12:17)
[2017-01-22] MEDS ORDERED: FLOMAX4 PO (12:17)
== END 2017-01-22 18:48 | disposition home or self-care (01) | DRG 386 ==
LOC: ER 13:59 → 4SO 17:57
PROVIDERS: Emergency Medicine; Internal Medicine; Urology
PROC: 30233N1 Transfusion of Nonautologous Red Blood Cells into Peripheral Vein, Percutaneous Approach (ICD-10-PCS; principal; 2017-01-16)
PROC: 0DBE8ZX Excision of Large Intestine, Via Natural or Artificial Opening Endoscopic, Diagnostic (ICD-10-PCS; 2017-01-19)
DX: K51.011 Ulcerative (chronic) pancolitis with rectal bleeding (principal); N17.9 Acute kidney failure, unspecified; E87.2 Acidosis; D50.9 Iron deficiency anemia, unspecified; N13.1 Hydronephrosis with ureteral stricture, not elsewhere classified; D62 Acute posthemorrhagic anemia; D47.3 Essential (hemorrhagic) thrombocythemia; C61 Malignant neoplasm of prostate; D50.0 Iron deficiency anemia secondary to blood loss (chronic); R33.8 Other retention of urine; K51.90 Ulcerative colitis, unspecified, without complications; Z79.818 Long term (current) use of other agents affecting estrogen receptors and estrogen levels; Z91.19 Patient's noncompliance with other medical treatment and regimen; Z88.8 Allergy status to other drugs, medicaments and biological substances; H40.9 Unspecified glaucoma; R15.9 Full incontinence of feces; R32 Unspecified urinary incontinence; N18.9 Chronic kidney disease, unspecified
CPT/HCPCS: 36415; 36430; 71020; 76775; 80048; 80053; 80069; 81001; 82607; 82728; 82746; 83010; 83540; 83550; 83615; 83735; 83880; 84443; 84484; 85014; 85018; 85025; 85045; 85610; 85730; 86850; 86900; 86901; 86920; 87086; 88305; 93005; 93971; 99291; A9270-GY; C9113; J2405; J2916; J2920; J3411; P9016

== ENCOUNTER 2017-02-14 14:26 | Inpatient (IN) | payer MEDICARE, OTHER ==
--- NOTE | ~2017-02-14 | CN ---
Consultation Report [place] [id number] [place]. [address] NAME: JONNA GUZMAN : 48 STATUS : ADM IN PAT#: [id number] AGE: 66 ADM/REG DATE : 02/14/17 MR#: [id number] REPORT SERV DATE: 02/15/17 DICTATED BY: AGNES HARMON DATE: 02/15/17 REPORT STATUS : Draft TRANSCRIBED BY: MODL DATE: 02/15/17 SURGERY CONSULTATION NOTE DATE OF CONSULTATION: 02/15/2017 REASON FOR CONSULTATION: Questionable left psoas abscess. HISTORY OF PRESENT ILLNESS: This is a 66-year-old, male, who apparently has had prostate cancer for quite some time and has not been compliant with treatment for the last year. He has described some increasing right-sided abdominal pain and difficulty urinating. He endorses a slight amount of hematuria. MEDICAL HISTORY: Please see the admitting history and physical. SURGICAL HISTORY: Please see the admitting history and physical. SOCIAL HISTORY: Please see the admitting history and physical. FAMILY HISTORY: Please see the admitting history and physical. MEDICATIONS: Please see the admitting history and physical. ALLERGIES: PLEASE SEE THE ADMITTING HISTORY AND PHYSICAL. REVIEW OF SYSTEMS: Please see the admitting history and physical. PHYSICAL EXAMINATION: GENERAL: Alert and oriented x3. No acute distress. HEENT: Normocephalic, atraumatic. NECK: Supple. No carotid bruits are noted. No cervical lymphadenopathy. CHEST: Clear to auscultation bilaterally. HEART: Regular rate and rhythm. No murmurs, rubs, or gallops are auscultated. ABDOMEN: Soft, with mild tenderness to the right side and none on the left. EXTREMITIES: Warm and well perfused without edema. NEURO: No focal neurologic deficits are noted on gross exam. IMAGING: I personally reviewed the CT scan of his abdomen and I agree with Urology's assessment of the left side psoas mass being more likely mass-effect from the metastasis from his prostate cancer rather than a purulent collection, especially in light of his lack of tenderness on the left side and lack of his left-sided psoas sign. LABS: Have been reviewed. Consultation Report [place] [id number] [facility] [address] [place] [address] NAME: JONNA GUZMAN : 48 STATUS : ADM IN PAT#: [id number] AGE: 66 ADM/REG DATE : 02/14/17 MR#: [id number] REPORT SERV DATE: 02/15/17 DICTATED BY: AGNES HARMON DATE: 02/15/17 REPORT STATUS : Draft TRANSCRIBED BY: GINA DATE: 02/15/17 ASSESSMENT: I doubt left-sided psoas abscess and agree with Urology plans for management of untreated prostate cancer. PLAN: We will sign off. No surgical issues identified at this time. Please call with questions. CODYN/GINA Agnes Harmon MD / [id number] CC: Ana M Franklin M.D.
--- NOTE | ~2017-02-14 | HP ---
History And Physical [address] [place]. [address] NAME: JONNA GUZMAN : 46 STATUS : ADM IN [facility]#: [id number] AGE: 66 ADM/REG DATE : 02/14/17 MR#: [id number] REPORT SERV DATE: 02/15/17 DICTATED BY: FRED GIORDANO DATE: 02/14/17 REPORT STATUS : Draft TRANSCRIBED BY: MODL DATE: 02/14/17 DATE OF ADMISSION: 02/14/2017 CHIEF COMPLAINT: A 66-year-old male, presenting with a severe urinary obstruction and evidence of acute renal failure. HISTORY OF PRESENT ILLNESS: The patient's history was obtained through careful interview with the patient, coupled with review of [facility] medical records. The patient for the last two or three weeks he has had a very poor appetite and then began to have increasing abdominal pain. He describes it in the suprapubic region, aching quality, also at times a bloated and crushing quality, 6/10 severity. He has had some slight diarrhea. He has had subjective fevers and chills and then he states "I just cannot keep warm." He has felt weak, fatigued. Over the last three months, he has lost 25 pounds. He has noticed increasing right lower extremity edema compared to the left. No bright red blood per rectum. No melena. No chest pain. No shortness of breath. No lightheadedness. No nausea or vomiting. REVIEW OF SYSTEMS: Otherwise, a 14-point review of systems was obtained and was negative. PAST MEDICAL HISTORY: 1. Ulcerative colitis, seen by Dr. Gustafson. 2. Nephrolithiasis. 3. Hypertension. 4. Anemia. 5. Urinary retention, seen by Dr. Mane Nowak. 6. Prostate cancer, on Lupron, Zytiga, steroids with described metastatic disease. 7. Superficial vein thrombosis of the arm. PAST SURGICAL HISTORY: Bilateral knee scopes. ALLERGIES: PREDNISOLONE. SOCIAL HISTORY: Quit smoking in . No alcohol abuse. Lives alone. Has no children. A of the [employer]. FAMILY HISTORY: Hypertension. No kidney disease. No heart disease. CURRENT MEDICATIONS: Include Protonix 40 mg p.o. daily, prednisone 10 mg p.o. daily, sodium History And Physical [address] [facility]. [address] NAME: JONNA GUZMAN : 46 STATUS : ADM IN [facility]#: [id number] AGE: 66 ADM/REG DATE : 02/14/17 MR#: [id number] REPORT SERV DATE: 02/15/17 DICTATED BY: FRED GIORDANO DATE: 02/14/17 REPORT STATUS : Draft TRANSCRIBED BY: MODL DATE: 02/14/17 bicarbonate 650 mg p.o. daily, Flomax 0.4 mg p.o. daily. PHYSICAL EXAMINATION: VITAL SIGNS: Temperature 98.2, pulse 110, blood pressure 112/75, respiratory rate 16, and O2 saturation 99% on room air. GENERAL: A pleasant, cooperative male, ill in appearance, but not in any particular distress. HEENT: Pupils equal, round, and reactive to light. No conjunctival pallor. No scleral icterus. Nares are patent. Oropharynx is clear of obstruction. Dry mucous membranes. NECK: Trachea midline. No thyromegaly. LYMPH: No cervical lymphadenopathy. No supraclavicular lymphadenopathy. RESPIRATORY: Clear to auscultation at bases. No wheezes, no rales, no rhonchi. Normal respiratory effort. CARDIOVASCULAR: Tachycardic. Regular rhythm. No murmurs, rubs, or gallops. No extremity edema is appreciated. ABDOMEN: After Martin catheter has been placed, the patient has a completely soft abdomen now without distention. No tenderness throughout. No hepatosplenomegaly. DERMATOLOGICAL: Warm and dry extremities. No pallor. No cyanosis. PSYCHIATRIC: Flat affect, but a good mood. He is alert and oriented x3. LABORATORY DATA: White blood cell count 17.7, hemoglobin 9.7, hematocrit 29.5, platelets 277. Sodium 132, potassium 6.0, chloride 99, bicarb 11, BUN 184, creatinine 20.6, platelets 84, procalcitonin 3.4, lipase 670, lactic acid 1.4, liver enzymes within normal limits. ABG demonstrates pH 7.34, a PaCO2 of 15, a PaO2 of 95, and a bicarb of 8. Urinalysis shows greater than 182 white blood cells, greater than 182 red blood cells, large leukocyte esterase. STUDIES: A CT scan of the abdomen shows hydronephrosis, left greater than right; left psoas abscess. ASSESSMENT AND PLAN: 1. Severe urinary obstruction with acute renal failure. Place a Martin catheter. Provide supportive care. Monitor for postobstructive diuretic effect. Obtain Urology consult with Dr. Mane Nowak. 2. Sepsis with left psoas abscess. Obtain a Surgery consult with Dr. Harmon. Check blood cultures. Place on IV antibiotics. 3. Prostate cancer with described metastatic disease. Check a PSA. The patient on steroids and Lupron, history of Zytiga. 4. Lymphedema. Check a venous Doppler ultrasound of lower extremities. 5. Ulcerative colitis. Seems to be under good control. Seen outpatient by Dr. Gustafson, renal dialysis technician. 6. Diarrhea. Check Clostridium difficile toxin. KPL/GINA History And Physical [address] [address] NAME: JONNA GUZMAN : 46 STATUS : ADM IN [facility]#: [id number] AGE: 66 ADM/REG DATE : 02/14/17 MR#: [id number] REPORT SERV DATE: 02/15/17 DICTATED BY: FRED GIORDANO DATE: 02/14/17 REPORT STATUS : Draft TRANSCRIBED BY: GINA DATE: 02/14/17 Fred Giordano M.D. / [id number] CC: Ana M Wagner M.D. Marty Scheinberg, M.D. Bessie Ingram-Nunally, M.D.
--- NOTE | ~2017-02-14 | CN ---
Consultation Report [facility] [address] [place]. [address] NAME: JONNA BACK : 46 STATUS : ADM IN PAT#: [id number] AGE: 66 ADM/REG DATE : 02/14/17 MR#: [id number] REPORT SERV DATE: 02/15/17 DICTATED BY: CLIFF DUNNE DATE: 02/15/17 REPORT STATUS : Draft TRANSCRIBED BY: MODL DATE: 02/15/17 CONSULTATION DATE OF CONSULTATION: 02/15/2017 REASON FOR CONSULTATION: Prostate cancer. REQUESTING PHYSICIAN: Hospitalist Service. IMPRESSION: 1. Metastatic adenocarcinoma of the prostate, currently untreated. 2. Acute kidney injury secondary to obstruction, probably bladder outlet obstruction. 3. Large retroperitoneal mass, probably metastasis. RECOMMENDATIONS: I had a long discussion with Jonna about his will to live. The patient has been noncompliant in followup. He was diagnosed with prostate cancer approximately 5 years ago and has been on Lupron therapy (androgen deprivation therapy), had Provenge, and was recently hospitalized for an acute kidney injury secondary to bladder outlet obstruction. The patient has failed voiding trials, and he did not keep followup appointments in my office. He has not received any Lupron in approximately a year. He is essentially untreated at the present time. The patient voiced his will to live and to kumar this cancer. My recommendation will be cystoscopy, bilateral retrograde pyelography, transurethral resection of prostate, and bilateral scrotal orchiectomy. I described the surgical procedure, the likely outcomes with potential complications of bleeding and infection, as well as the affects of androgen deprivation therapy which he has already experienced in the form of Lupron. He consents to proceed. We will schedule in the near future. DISCUSSION: Mr. Back is a 66-year-old male, who presented with metastatic prostate cancer approximately 5 years ago. He was initially managed with Lupron. He began to fail Lupron and went through Provenge treatment and subsequently Zytiga and prednisone. He has been off Lupron, Zytiga, and prednisone by his own choosing now for approximately 1 year. He was recently hospitalized with an acute kidney injury and bladder outlet obstruction. He also has severe ulcerative colitis and this was out of control. In his last admission, that was managed and he was supposed to follow up in my office to reinitiate androgen deprivation therapy. He neglected to show up. He re-presented with acute kidney injury and outlet obstruction. CT scan shows bilateral hydronephrosis and a large retroperitoneal mass. Presumably it is a metastasis on the left side. His colitis has been stable. PHYSICAL EXAMINATION: VITAL SIGNS: The patient was in the intermediate care unit. He is afebrile. His vital signs are stable. GENERAL: He is awake and alert. Consultation Report [address] [place]. [address] NAME: JONNA BACK : 46 STATUS : ADM IN PAT#: [id number] AGE: 66 ADM/REG DATE : 02/14/17 MR#: [id number] REPORT SERV DATE: 02/15/17 DICTATED BY: CLIFF DUNNE DATE: 02/15/17 REPORT STATUS : Draft TRANSCRIBED BY: GINA DATE: 02/15/17 EYES: Sclerae anicteric. NECK: Supple. LUNGS: Clear. HEART: Regular rate and rhythm. ABDOMEN: Soft, nontender. No palpable abdominal masses. Penis has a catheter in place. Testes descended. LOWER EXTREMITIES: No deformities. LABORATORY DATA: Significant studies show a creatinine this morning of 8, which is down from 20 yesterday. White blood cell count of 9, hemoglobin of 8.5, hematocrit of 28%, platelet count adequate. I discussed with him the above procedure. He expressed his will to live. We will attempt to schedule that to be done tomorrow. We will have to hold all antithrombotic drugs in preparation with that. PF/GINA Cliff Dunne M.D. / [id number] CC: Wiliam Ohara M.D.
--- NOTE | ~2017-02-14 | IDS ---
Interim Discharge Summary [facility] [address] [place]. [address] NAME: JONNA GUZMAN : 46 STATUS : ADM IN [facility]#: [id number] AGE: 66 ADM/REG DATE : 02/14/17 MR#: [id number] REPORT SERV DATE: 02/20/17 DICTATED BY: RUDDY BARBOSA DATE: 02/19/17 REPORT STATUS : Draft TRANSCRIBED BY: MODL DATE: 02/19/17 ADMISSION DATE: 02/14/2017 DISCHARGE DATE: INTERIM DIAGNOSES: Include: 1. Obstructive uropathy in the setting of prostate cancer with metastasis. 2. Acute kidney injury that has resolved, most recent creatinine 0.83. 3. 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 4. Bilateral lower extremity deep vein thrombosis. 5. Anemia of chronic disease and also some acute blood during this hospitalization. 6. History of medical noncompliance. 7. History of hypertension. 8. History of ulcerative colitis in the past. 9. Questionable left psoas abscess, but this is doubtful given Dr. Harmon's evaluation and no surgical indications were made. HISTORY OF PRESENT ILLNESS: A 66-year-old male, who presented with severe urinary obstruction and acute renal failure. Please see the initial H and P of Dr. Valeriy Broussard. This patient is admitted to the Hospitalist Service for further evaluation and treatment. He was immediately given a Martin catheter for relief of his severe urinary obstruction. Lab work was ordered and followed. He was placed on empiric antibiotic therapy. CONSULTANTS DURING THIS ADMISSION: Include Urology, Dr. Cliff Martin; General Surgery, Dr. Brian Harmon. PROCEDURES AND IMAGING DURING THIS ADMISSION: Included a CT of the abdomen and pelvis initially that showed marked enlarged prostate gland and a history of prostate carcinoma, moderate right-sided hydronephrosis and dilation of the ureter, severe left-sided hydronephrosis and dilation of the ureter as well. A venous Doppler ultrasound of the lower extremities showing bilateral common femoral vein thrombosis surgery on 02/16/2017. Cystoscopy, transurethral resection of the prostate, bilateral scrotal orchiectomy. CONTINUATION IN HOSPITAL COURSE: The patient's acute renal failure began to improve after his bladder was able to be emptied with Martin catheter with his creatinine of 20.60 falling down to 8.78 and then to 1.35 and follow up with Urology, Dr. Martin, he did agree on pursuing surgical intervention and underwent the cystoscopy TURP and bilateral scrotal orchiectomy, which he recovered from and has kept Martin catheter. He was quite anemic postoperatively. He was given 2 units of packed red blood cells, which he tolerated well. He has had repletion for electrolytes. Afterwards, he was on bladder irrigation, which has now been discontinued. His urine culture grew gram-negative bacilli, which has been identified as the Chryseobacterium indologenes, which is susceptible to Bactrim. His antibiotics were switched to this Bactrim, which he has been on now. Currently pending urology plan and follow up as the patient can likely go home soon. I have discussed with Urology, Dr. Martin as he does not wish the patient to be on any heparin, Coumadin, or any NOAC anticoagulation, so we will treat with 81 mg aspirin and obtain some lab work in the Interim Discharge Summary [address] [address] NAME: JONNA GUZMAN : 46 STATUS : ADM IN PAT#: [id number] AGE: 66 ADM/REG DATE : 02/14/17 MR#: [id number] REPORT SERV DATE: 02/20/17 DICTATED BY: RUDDY BARBOSA DATE: 02/19/17 REPORT STATUS : Draft TRANSCRIBED BY: GINA DATE: 02/19/17 morning for followup. ASHLEIGH/GINA Ruddy Barbosa NP / [id number] CC: Ana M Franklin M.D.
--- NOTE | ~2017-02-14 | DS ---
Discharge Summary [facility] [address] [place]. [address] NAME: JONNA GUZMAN : 46 STATUS : DIS IN PAT#: [id number] AGE: 66 ADM/REG DATE : 02/14/17 MR#: [id number] REPORT SERV DATE: 02/22/17 DICTATED BY: KEN MULLER II DATE: 02/21/17 REPORT STATUS : Draft TRANSCRIBED BY: GINA DATE: 02/21/17 ADMISSION DATE: 02/14/2017 DISCHARGE DATE: 02/21/2017 DISCHARGE DIAGNOSES: 1. Obstructive uropathy in the setting of prostate cancer with metastasis. 2. Acute kidney injury that has resolved. 3. 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 4. Bilateral lower extremity deep vein thrombosis. 5. Anemia of chronic disease and also acute blood loss post surgery. 6. History of medical noncompliance. 7. History of hypertension. 8. History of ulcerative colitis in the past. CONSULTS: Dr. Martin with Urology and Dr. Harmon with Surgery. HOSPITAL COURSE: For details of patient's hospitalization and procedures, please see Ry Vann's interim summary from 02/19/2017. I subsequently took over the patient's care. The patient's renal function has essentially returned to baseline at 0.73. He was being treated with 81 mg of aspirin for his DVTs given contraindication by Dr. Martin due to recent surgery. He will be continued on Bactrim for his UTI for an additional 8 days. His Martin catheter was attempted to be removed; however, he was unable to void sufficiently, and his Martin catheter was replaced. Dr. Martin will follow him up in one week. DISCHARGE MEDICATIONS: 1. Protonix 40 mg p.o. daily. 2. Sodium bicarb 650 mg p.o. daily. 3. Prednisone 40 mg p.o. daily. 4. Bactrim DS 1 tab p.o. b.i.d. DISCHARGE INSTRUCTIONS: The patient will follow with Dr. Martin in one week. GENEVA/GINA Ken Muller II, MD / [id number] CC: Latonya Zaragoza M.D.
--- NOTE | ~2017-02-14 | OP ---
Record Of Operation [facility] [address] [place]. [address] NAME: JONNA BACK : 46 STATUS : ADM IN PAT#: [id number] AGE: 66 ADM/REG DATE : 02/14/17 MR#: [id number] REPORT SERV DATE: 02/16/17 DICTATED BY: CLIFF DUNNE DATE: 02/16/17 REPORT STATUS : Draft TRANSCRIBED BY: MODL DATE: 02/16/17 DATE OF PROCEDURE: 02/16/2017 PREOPERATIVE DIAGNOSES: 1. Adenocarcinoma of the prostate. 2. Urinary retention. 3. Acute kidney injury with bilateral hydronephrosis. PROCEDURES DURING THIS HOSPITALIZATION: 1. Cystoscopy. 2. Transurethral resection of prostate. 3. Bilateral scrotal orchiectomy. SURGEON: Cliff Dunne M.D. ANESTHESIA: General and local. BLOOD LOSS: Estimated to be 30 mL. FLUID REPLACEMENT: Unknown. DRAINS: A 24-Icelandic three-way Dunne catheter with 30 mL of sterile water inflating the catheter balloon on three-way continuous bladder irrigation. INDICATION: Mr. Back is a 66-year-old male with metastatic prostate cancer, who has been noncompliant with his medical therapy. He has had two presentations for urinary retentions, the last of which was earlier this week. On both presentations, he was in acute kidney injury with bilateral hydro. The patient has been on androgen deprivation therapy in the past. He has also been on Zytiga. He has neglected to continue these medications. At this time, he consents to a cystoscopy, transverse resection of prostate, and bilateral scrotal orchiectomies. TECHNIQUE: The patient was identified, brought to the operating room, administered general anesthetic agent by the Anesthesia Service and intubated. He was positioned into the dorsal lithotomy position. The penis, groin, scrotum, and perineum were prepped and draped in usual sterile fashion. A 22-Icelandic cystoscopic sheath with 30-degree lens was used for cystourethroscopy. The anterior and bulbus urethra were normal. Prostatic urethra was quite distorted. There was a large growth extending from the right bladder neck into the trigone. Neither ureteral orifice was identified. The bladder was moderately trabeculated. I surveyed with the 30- and 70-degree lens and I removed the cystoscope. I sounded the urethra to 30-Icelandic with Stafford sounds and then inserted a 28-Icelandic continuous flow resecting sheath into the bladder with an obturator. The obturator was removed with the Su resectoscope and a cutting loop was inserted. I then began resection of the prostate. I started inside the bladder neck and resected the tissue on the trigone. I never saw the ureteral orifices. I then resected from the bladder neck back to the Record Of Operation [address] [address] NAME: JONNA BACK : 46 STATUS : ADM IN PAT#: [id number] AGE: 66 ADM/REG DATE : 02/14/17 MR#: [id number] REPORT SERV DATE: 02/16/17 DICTATED BY: CLIFF DUNNE DATE: 02/16/17 REPORT STATUS : Draft TRANSCRIBED BY: GINA DATE: 02/16/17 verumontanum. I then resected the lateral lobes. I resected some of the anterior lobe. The bladder was irrigated free of all debris and clots. Fastidious hemostasis was achieved. I inserted a 24-Icelandic three-way Dunne catheter into the bladder with 30 mL of sterile water. It was connected to continuous bladder irrigation, began to irrigate, and was irrigated until clear. Marcaine 0.5% plain was used to perform bilateral cord blocks as well as a skin wheal in the dependent portion of the scrotum. A transverse incision was made in the dependent portion of the scrotum with a 10-blade scalpel. It was carried into the left hemiscrotum with the Bovie cautery. The tunica vaginalis was opened up and the testis was delivered out of the wound. I skeletonized the spermatic cord. I isolated the vas deferens, clamped it proximally, transected it distally. I then bisected the spermatic cord and placed a Namita clamp across both halves. I then divided the distal to the Namita clamps. A suture was placed into the left testis. I then suture ligated the stumps with 2-0 silk suture ligature. I carried the dissection into the right hemiscrotum, performed the exact same procedure on the right side. Fastidious hemostasis was achieved. I irrigated the wounds copiously. I then closed dartos layer with a running 3-0 Vicryl. I closed the skin with horizontal mattress sutures of 3-0 chromic. Skin cement was applied and the scrotal support. The patient was then awakened and taken to the recovery unit in stable and satisfactory conditions. JOVANA/GINA Cliff Dunne M.D. / [id number] CC: Donald Alvarez M.D.
[~2017-02-14 14:26] MED LIST changes: +COMBIGAN0.2 MG/0.5 OPH; +FLOMAX4 PO; +P10 PO; +PROTONIX PO; +SODBICAR10 PO; +XALAT OPH
[2017-02-14 14:53] LABS: BASOPHILS 0 %; EOSINOPHILS 0.1 %; EOSINOPHILS ABSOLUTE 0.02 10/3/uL (0.0-0.53); HEMATOCRIT 29.5 % (40.0-51.0); HEMOGLOBIN 9.7 g/dL (13.6-17.8); IMMATURE GRANULOCYTES 0.4 %; LYMPHOCYTES 3.6 %; LYMPHOCYTES ABSOLUTE 0.64 10/3/uL (0.67-4.30); MEAN CORPUSCULAR VOLUME 82.2 fL (80-100); MONOCYTES ABSOLUTE 0.35 10/3/uL (0.21-1.20); NEUTROPHILS 93.9 %; RED CELL COUNT 3.59 10/6/uL (4.7-6.1)
[2017-02-14 14:54] LABS: IMMATURE GRANULOCYTES ABSOLUTE 0.07 10/3/uL (0.0-0.11); MANUAL DIFF NO %; MEAN CORPUS HGB CONC 32.9 g/dL (32.0-36.0); PLATELET COUNT 277 10/3/uL (150-400); RBC DISTRIBUTION WIDTH 24.3 % (12.0-16.0); WHITE BLOOD CELLS 17.7 10/3/uL (4.5-10.5)
[2017-02-14 15:13] LABS: ALBUMIN 2.1 G/DL (3.5-5.0); GLUCOSE, SERUM 84 MG/DL (60-99); SGOT(AST) 11 U/L (5-40); SGPT(ALT) 12 U/L (5-65); TOTAL BILIRUBIN 0.5 MG/DL (0-1.2)
[2017-02-14 15:14] LABS: CHLORIDE, SERUM 99 MMOL/L (96-112); CO2 (CARBON DIOXIDE) 11 MMOL/L (24-34); SODIUM, SERUM 132 MMOL/L (135-148)
[2017-02-14 15:15] LABS: A/G RATIO 0.4 (0.7-1.9); ALKALINE PHOSPHATASE 111 U/L (45-117); GFR AFRICAN AMERICAN 2 ML/MIN (>=60); GFR NON AFRICAN AMERICAN 2 ML/MIN (>=60); TOTAL PROTEIN 7.1 G/DL (6.0-8.5)
[2017-02-14 15:25] LABS: BAND NEUTROPHILS 8 %; ER DIFF TAT 0 Hrs 37 Mins; LYMPHOCYTES 2 %; LYMPHOCYTES ABSOLUTE (CALC) 0.35 10/3/uL (0.67-4.30); MONOCYTES 2 %; MONOCYTES ABSOLUTE (CALC) 0.35 10/3/uL (0.21-1.20); NEUTROPHILS ABSOLUTE (CALC) 16.99 10/3/uL (2.02-8.40); PLATELET ESTIMATE ADQ (ADEQUATE); SEGMENTED NEUTROPHIL (0) 88 %; TOTAL NUCLEATED CELLS 100
[2017-02-14 15:26] LABS: OVALOCYTES 1+ (3-10/OIF) (0-2/OIF); SPHEROCYTES FEW (3-10/OIF)
[2017-02-14 15:27] LABS: GIANT PLATELET RARE
[2017-02-14 16:00] LABS: ALLENS TEST Pos; BE (BASE EXCESS) -15.5 MEQ/L (0 +/- 2.5); CARBOXYHEMOGLOBIN 0.6 % (0-3); HEMOBLOGIN CONTENT 10.2 G/DL (14-18); INSTRUMENT SERIAL # 8087; METHEMOGLOBIN 0.3 % (0-3); O2 CONTENT 13.9 VOL% (18-24); PCO2 (CO2 TENSION) 15 MMHG (35-45); PO2 (O2 TENSION) 95 MMHG (79-93); SAMPLE Arterial; pH 7.34 (7.37-7.43)
[2017-02-14 16:01] LABS: BUN (BLOOD UREA NITROGEN) 184 MG/DL (6-23)
[2017-02-14 16:45] LABS: LACTATE 1.4 MMOL/L (0.3-2.4)
[2017-02-14 18:30] LABS: ASCORBIC ACID (UR NOT ORDER) NEG (NEG); BILIRUBIN, URINE NEGATIVE (NEG); ER URINALYSIS TAT 0 Hrs 37 Mins; KETONE, URINE NEGATIVE (NEG); LEUKOCYTE ESTERASE(NOT OR MOD (NEG); NITRITE (URINE) NEG (NEG); WBC (NOT ORDERED) (RFLEX) > 182 (0-5)
[2017-02-15 05:26] LABS: BASOPHILS 0.1 %; BASOPHILS ABSOLUTE 0.01 10/3/uL (0.0-0.16); EOSINOPHILS 1.9 %; EOSINOPHILS ABSOLUTE 0.17 10/3/uL (0.0-0.53); HEMOGLOBIN 9.1 g/dL (13.6-17.8); IMMATURE GRANULOCYTES 0.4 %; IMMATURE GRANULOCYTES ABSOLUTE 0.04 10/3/uL (0.0-0.11); LYMPHOCYTES ABSOLUTE 0.73 10/3/uL (0.67-4.30); MEAN CORPUS HGB CONC 32.5 g/dL (32.0-36.0); MEAN CORPUSCULAR HEMOGLOB 27.1 pg (26.0-34.0); MEAN CORPUSCULAR VOLUME 83.3 fL (80-100); MEAN PLATELET VOLUME 9.1 fL (9.2-13.0); MONOCYTES 2.7 %; MONOCYTES ABSOLUTE 0.25 10/3/uL (0.21-1.20); NEUTROPHILS 86.9 %; NEUTROPHILS ABSOLUTE 7.92 10/3/uL (2.02-8.40); PLATELET COUNT 258 10/3/uL (150-400); RBC DISTRIBUTION WIDTH 24.1 % (12.0-16.0); RED CELL COUNT 3.36 10/6/uL (4.7-6.1)
[2017-02-15 05:27] LABS: MANUAL DIFF NO %; WHITE BLOOD CELLS 9.1 10/3/uL (4.5-10.5)
[2017-02-15 05:31] LABS: INTERNATIONAL NORMAL RATI 1.4 UNITS (-); PARTIAL THROMBO TIME 36.2 SEC (22.5-37.2); PROTIME (NOT ORD) 16.9 SEC (12.0-14.5)
[2017-02-15 05:42] LABS: ALBUMIN 1.7 G/DL (3.5-5.0); CALCIUM, SERUM 8.4 MG/DL (8.5-10.4); CHLORIDE, SERUM 111 MMOL/L (96-112); GLUCOSE, SERUM 72 MG/DL (60-99); POTASSIUM, SERUM 3.5 MMOL/L (3.5-5.3); SGOT(AST) 9 U/L (5-40); SGPT(ALT) 7 U/L (5-65); TOTAL BILIRUBIN 0.4 MG/DL (0-1.2)
[2017-02-15 05:43] LABS: A/G RATIO 0.4 (0.7-1.9); ALKALINE PHOSPHATASE 80 U/L (45-117); BUN (BLOOD UREA NITROGEN) 111 MG/DL (6-23); CO2 (CARBON DIOXIDE) 17 MMOL/L (24-34); CREATININE 8.78 MG/DL (0.70-1.30); GFR AFRICAN AMERICAN 6 ML/MIN (>=60); GFR NON AFRICAN AMERICAN 6 ML/MIN (>=60); GLOBULIN 3.9 G/DL (2.5-4.1); SODIUM, SERUM 145 MMOL/L (135-148); TOTAL PROTEIN 5.6 G/DL (6.0-8.5)
[2017-02-15 05:54] LABS: PLATELET ESTIMATE ADQ (ADEQUATE); RBC MORPHOLOGY ABN (NORMAL)
[2017-02-15 06:39] LABS: PROCALCITONIN 2.87 ng/mL (<0.5)
[2017-02-15 15:12] LABS: BASOPHILS 0 %; EOSINOPHILS 0.1 %; EOSINOPHILS ABSOLUTE 0.01 10/3/uL (0.0-0.53); HEMATOCRIT 25.2 % (40.0-51.0); HEMOGLOBIN 8.4 g/dL (13.6-17.8); IMMATURE GRANULOCYTES 0.2 %; IMMATURE GRANULOCYTES ABSOLUTE 0.02 10/3/uL (0.0-0.11); LYMPHOCYTES 2.9 %; LYMPHOCYTES ABSOLUTE 0.28 10/3/uL (0.67-4.30); MANUAL DIFF NO %; MEAN CORPUS HGB CONC 33.3 g/dL (32.0-36.0); MEAN CORPUSCULAR HEMOGLOB 27.4 pg (26.0-34.0); MEAN CORPUSCULAR VOLUME 82.1 fL (80-100); MEAN PLATELET VOLUME 8.8 fL (9.2-13.0); MONOCYTES 0.6 %; MONOCYTES ABSOLUTE 0.06 10/3/uL (0.21-1.20); NEUTROPHILS 96.2 %; NEUTROPHILS ABSOLUTE 9.23 10/3/uL (2.02-8.40); PLATELET COUNT 253 10/3/uL (150-400); RBC DISTRIBUTION WIDTH 23.9 % (12.0-16.0); RED CELL COUNT 3.07 10/6/uL (4.7-6.1); WHITE BLOOD CELLS 9.6 10/3/uL (4.5-10.5)
[2017-02-15 15:20] LABS: INTERNATIONAL NORMAL RATI 1.3 UNITS (-); PARTIAL THROMBO TIME 34.9 SEC (22.5-37.2); PROTIME (NOT ORD) 16.3 SEC (12.0-14.5)
[2017-02-15 15:29] LABS: PLATELET ESTIMATE ADQ (ADEQUATE)
[2017-02-15 15:35] LABS: ELLIPTOCYTES 1+ (3-10/OIF) (0-2/OIF); TEARDROP SHAPED RBCS FEW (3-10/OIF)
[2017-02-16 06:37] LABS: BASOPHILS 0.1 %; BASOPHILS ABSOLUTE 0.01 10/3/uL (0.0-0.16); EOSINOPHILS 0 %; HEMATOCRIT 23.8 % (40.0-51.0); HEMOGLOBIN 7.8 g/dL (13.6-17.8); IMMATURE GRANULOCYTES 0.3 %; IMMATURE GRANULOCYTES ABSOLUTE 0.03 10/3/uL (0.0-0.11); LYMPHOCYTES 8.6 %; LYMPHOCYTES ABSOLUTE 0.74 10/3/uL (0.67-4.30); MEAN CORPUS HGB CONC 32.8 g/dL (32.0-36.0); MEAN CORPUSCULAR HEMOGLOB 27.6 pg (26.0-34.0); MEAN CORPUSCULAR VOLUME 84.1 fL (80-100); MEAN PLATELET VOLUME 8.8 fL (9.2-13.0); MONOCYTES 4.4 %; MONOCYTES ABSOLUTE 0.38 10/3/uL (0.21-1.20); NEUTROPHILS 86.6 %; NEUTROPHILS ABSOLUTE 7.48 10/3/uL (2.02-8.40); PLATELET COUNT 249 10/3/uL (150-400); RBC DISTRIBUTION WIDTH 23.8 % (12.0-16.0); RED CELL COUNT 2.83 10/6/uL (4.7-6.1); WHITE BLOOD CELLS 8.6 10/3/uL (4.5-10.5)
[2017-02-16 06:38] LABS: MANUAL DIFF NO %
[2017-02-16 06:43] LABS: INTERNATIONAL NORMAL RATI 1.3 UNITS (-); PROTIME (NOT ORD) 15.8 SEC (12.0-14.5)
[2017-02-16 06:48] LABS: ALBUMIN 1.5 G/DL (3.5-5.0); CALCIUM, SERUM 7.8 MG/DL (8.5-10.4); CHLORIDE, SERUM 113 MMOL/L (96-112); PHOSPHORUS, SERUM 2.1 MG/DL (2.5-4.5); POTASSIUM, SERUM 3.2 MMOL/L (3.5-5.3); SODIUM, SERUM 149 MMOL/L (135-148)
[2017-02-16 06:50] LABS: BUN (BLOOD UREA NITROGEN) 37 MG/DL (6-23); CO2 (CARBON DIOXIDE) 28 MMOL/L (24-34); CREATININE 1.35 MG/DL (0.70-1.30); GFR AFRICAN AMERICAN 62 ML/MIN (>=60); GFR NON AFRICAN AMERICAN 54 ML/MIN (>=60); GLUCOSE, SERUM 128 MG/DL (60-99)
[2017-02-16 07:36] LABS: PLATELET ESTIMATE ADQ (ADEQUATE); RBC MORPHOLOGY ABN (NORMAL)
[2017-02-17 07:02] LABS: BASOPHILS 0.1 %; BASOPHILS ABSOLUTE 0.01 10/3/uL (0.0-0.16); EOSINOPHILS ABSOLUTE 0.11 10/3/uL (0.0-0.53); IMMATURE GRANULOCYTES 0.4 %; IMMATURE GRANULOCYTES ABSOLUTE 0.04 10/3/uL (0.0-0.11); LYMPHOCYTES 12.5 %; LYMPHOCYTES ABSOLUTE 1.42 10/3/uL (0.67-4.30); MEAN CORPUS HGB CONC 31.8 g/dL (32.0-36.0); MEAN CORPUSCULAR HEMOGLOB 27.7 pg (26.0-34.0); MEAN PLATELET VOLUME 9.5 fL (9.2-13.0); MONOCYTES 3.4 %; MONOCYTES ABSOLUTE 0.38 10/3/uL (0.21-1.20); NEUTROPHILS 82.6 %; NEUTROPHILS ABSOLUTE 9.36 10/3/uL (2.02-8.40); PLATELET COUNT 301 10/3/uL (150-400); WHITE BLOOD CELLS 11.3 10/3/uL (4.5-10.5)
[2017-02-17 07:14] LABS: HEMATOCRIT 33.6 % (40.0-51.0); HEMOGLOBIN 10.7 g/dL (13.6-17.8); MANUAL DIFF NO %; RED CELL COUNT 3.86 10/6/uL (4.7-6.1)
[2017-02-17 07:21] LABS: BUN (BLOOD UREA NITROGEN) 19 MG/DL (6-23); CALCIUM, SERUM 7.8 MG/DL (8.5-10.4); CHLORIDE, SERUM 114 MMOL/L (96-112); CO2 (CARBON DIOXIDE) 26 MMOL/L (24-34); CREATININE 0.83 MG/DL (0.70-1.30); GFR AFRICAN AMERICAN 105 ML/MIN (>=60); GFR NON AFRICAN AMERICAN 90 ML/MIN (>=60); GLUCOSE, SERUM 105 MG/DL (60-99); SODIUM, SERUM 145 MMOL/L (135-148)
[2017-02-17 07:57] LABS: PROCALCITONIN 0.92 ng/mL (<0.5)
[2017-02-20 08:38] LABS: BASOPHILS 0.2 %; BASOPHILS ABSOLUTE 0.02 10/3/uL (0.0-0.16); EOSINOPHILS 2.1 %; EOSINOPHILS ABSOLUTE 0.18 10/3/uL (0.0-0.53); HEMATOCRIT 32.4 % (40.0-51.0); IMMATURE GRANULOCYTES 0.5 %; IMMATURE GRANULOCYTES ABSOLUTE 0.04 10/3/uL (0.0-0.11); LYMPHOCYTES 12.4 %; LYMPHOCYTES ABSOLUTE 1.08 10/3/uL (0.67-4.30); MEAN CORPUS HGB CONC 30.9 g/dL (32.0-36.0); MEAN CORPUSCULAR HEMOGLOB 27.4 pg (26.0-34.0); MEAN CORPUSCULAR VOLUME 88.8 fL (80-100); MEAN PLATELET VOLUME 9.3 fL (9.2-13.0); MONOCYTES ABSOLUTE 0.35 10/3/uL (0.21-1.20); NEUTROPHILS 80.8 %; NEUTROPHILS ABSOLUTE 7.06 10/3/uL (2.02-8.40); PLATELET COUNT 321 10/3/uL (150-400); RBC DISTRIBUTION WIDTH 21.1 % (12.0-16.0); RED CELL COUNT 3.65 10/6/uL (4.7-6.1); WHITE BLOOD CELLS 8.7 10/3/uL (4.5-10.5)
[2017-02-20 08:39] LABS: MANUAL DIFF NO %
[2017-02-20 08:49] LABS: CALCIUM, SERUM 7.4 MG/DL (8.5-10.4); CHLORIDE, SERUM 109 MMOL/L (96-112); CO2 (CARBON DIOXIDE) 28 MMOL/L (24-34); CREATININE 0.73 MG/DL (0.70-1.30); GFR AFRICAN AMERICAN 110 ML/MIN (>=60); GFR NON AFRICAN AMERICAN 95 ML/MIN (>=60); GLUCOSE, SERUM 87 MG/DL (60-99); POTASSIUM, SERUM 3.2 MMOL/L (3.5-5.3); SODIUM, SERUM 142 MMOL/L (135-148)
[2017-02-20 08:51] LABS: BUN (BLOOD UREA NITROGEN) 8 MG/DL (6-23)
[2017-02-21] MEDS ORDERED: BACTRIM DS1 TAB PO (08:42)
== END 2017-02-21 18:06 | disposition home or self-care (01) | DRG 711 ==
LOC: ER 14:26 → IMCU 18:42 → 4SO 02-15 18:03
PROVIDERS: Emergency Medicine; Hospitalist; Internal Medicine; Nurse Practitioner Family; Urology
PROC: 0VT08ZZ Resection of Prostate, Via Natural or Artificial Opening Endoscopic (ICD-10-PCS; principal; 2017-02-16 11:45)
PROC: 30233N1 Transfusion of Nonautologous Red Blood Cells into Peripheral Vein, Percutaneous Approach (ICD-10-PCS; principal; 2017-02-16 11:45)
PROC: 0TJB8ZZ Inspection of Bladder, Via Natural or Artificial Opening Endoscopic (ICD-10-PCS; principal; 2017-02-16 11:45)
PROC: 0VTC0ZZ Resection of Bilateral Testes, Open Approach (ICD-10-PCS; principal; 2017-02-16 11:45)
DX: C61 Malignant neoplasm of prostate (principal); N17.9 Acute kidney failure, unspecified; I82.413 Acute embolism and thrombosis of femoral vein, bilateral; C78.6 Secondary malignant neoplasm of retroperitoneum and peritoneum; K51.90 Ulcerative colitis, unspecified, without complications; D62 Acute posthemorrhagic anemia; N13.6 Pyonephrosis; N13.8 Other obstructive and reflux uropathy; I82.431 Acute embolism and thrombosis of right popliteal vein; T45.1X6A Underdosing of antineoplastic and immunosuppressive drugs, initial encounter; Z91.128 Patient's intentional underdosing of medication regimen for other reason; Y92.009 Unspecified place in unspecified non-institutional (private) residence as the place of occurrence of the external cause; R33.8 Other retention of urine; I10 Essential (primary) hypertension; Z87.891 Personal history of nicotine dependence; D63.0 Anemia in neoplastic disease; B96.89 Other specified bacterial agents as the cause of diseases classified elsewhere
CPT/HCPCS: 36415; 36600; 74176; 80048; 80053; 80069; 81001; 82805; 83605; 83690; 83735; 84132; 84145; 84153; 84443; 85025; 85610; 85730; 86850; 86900; 86901; 86920; 87045; 87046; 87046-59; 87077; 87086; 87186; 87328; 87329; 87493; 87493-59; 87641; 87899; 87899-59; 88305; 88341; 88342; 89055; 93005; 93970; 96365; 96375; 99291; A9270-GY; C1758; J0610; J0692; J1170; J1720; J1940; J2250; J2405; J2710; J3010; J3370; J3475; P9016